=== PATIENT | female | born 1955 ===

== ENCOUNTER 2016-09-07 13:53 | Emergency (ER) | payer BC ==
[~2016-09-07] VITALS: Ht 165.1 cm; Wt 102.3 kg
[2016-09-07 15:33] VITALS: BP 125/61
== END 2016-09-07 15:36 | disposition home or self-care (01) ==
LOC: ED 13:55
DX: J45.901 Unspecified asthma with (acute) exacerbation (principal)
CPT/HCPCS: 71020; 99282; 99283